=== PATIENT | male | born 1945 | race Caucasian/White ===

== ENCOUNTER 2022-07-01 07:12 | Inpatient (IN) ==
--- NOTE | 2022-06-09 09:48 | PAT Medication Instructions ---
Medication Instructions Date of Service June 09, 2022 Home Medications Vitamin C 1 tab PO QAM aspirin 81 mg capsule 81 mg PO Q OTHER DAY atorvastatin 10 mg tablet 10 mg PO QPM lisinopril 10 mg tablet 10 mg PO QAM ASK your prescriber and surgeon aspirin 81 mg capsule 81 mg PO Q OTHER DAY DO NOT take the morning of surgery Vitamin C 1 tab PO QAM lisinopril 10 mg tablet 10 mg PO QAM Take evening before surgery atorvastatin 10 mg tablet 10 mg PO QPM Other Notes If you have any questions please call us at [phone] or [phone] or [phone] or [phone]
--- NOTE | 2022-06-15 12:50 | Anesthesiology Consultation ---
Date of Service June 15, 2022 Assessment & Plan (1) Encounter for pre-operative examination: - COVID screening: Per assessment on 06/15: No known COVID-19 positive contacts or current COVID-19 related symptoms. Travel screen negative. Patient vaccinated. At surgeon discretion if preop Covid testing being done. - Outpatient joint assessment: Pt currently scheduled for inpatient pathway. If surgeon requests review for outpatient joint pathway, patient is an acceptable candidate for outpatient joint program from anesthesia standpoint pending surgeon's office assessment that patient is motivated, has good support and completes Same Day Joint Program preop requirements. Chart Review Chart Review: Acceptable Risk for Surgery and Patient seen in Pre Admission Testing Teaching & Discussion Pre-Anesthesia Teaching/Discussion Notes: Instructed NPO after midnight before surgery,except medications with 15 cc of water. Medication instructions provided according to the PAT guidelines. History Surgery Operation Date: 07/01/22 08:15 Proposed Procedures p Right Total Shoulder Arthroplasty Reverse - Rafael Chacon M.D. Height/Weight Height: 5 ft 5 in Weight: 75.6 kg Allergies Allergy/AdvReac Type Severity Reaction Status Date / Time No Known Allergies Allergy Verified 06/08/22 13:56 Medications Home Medications Medication Instructions Recorded Confirmed Last Taken Vitamin C 1 tab PO QAM 06/08/22 06/08/22 Unknown aspirin 81 mg capsule 81 mg PO Q OTHER DAY 06/08/22 06/08/22 Unknown atorvastatin 10 mg tablet 10 mg PO QPM 06/08/22 06/08/22 Unknown lisinopril 10 mg tablet 10 mg PO QAM 06/08/22 06/08/22 Unknown Past Medical History Medical History Borderline diabetes mellitus HLD (hyperlipidemia) HTN (hypertension) Osteoarthritis Exercise / Class Metabolic Activity II 4-5 Yardwork/Stairs/Walk up hill Past Family History Family History Other No family history of adverse response to anesthesia Past Surgical History Surgical History History of right inguinal hernia repair History of tonsillectomy Past Anesthesia History No Hx of Anesthesia Complications Sister- Slow to wake, PONV History of PONV No Hx of PONV and No Hx of Motion Sickness Social History Smoking Status: Never smoker Do You Dip or Chew Tobacco: No Hx Alcohol Use: No Hx Substance Use: No substance use type: does not use Review of Systems Patient denies chest pain, shortness of breath, dyspnea on exertion, fever, chills, cough, wheezing, palpitations. Physical Exam Vital Signs VITALS BP 133/80 P 94 TEMP 98.5 SP02 98%RA RESP 18 PHYSICAL Full cervical extension range of motion. Full TMJ range of motion. TMD 4 finger breaths Mallampati Score 1 Dentition: upper/lower full dentures Lungs: clear throughout to auscultation Cardiac: regular rate and rhythm, no murmurs noted Spine: normal Carotid arteries: negative bruit Extremities: no LE edema Lab Results Anesthesia Preop Results Results Anesthesia Widget: WBC 4.52 K/ul (4.8-10.8) L 06/15/22 Hgb 14.2 g/dl (14.0-18.0) 06/15/22 Hct 40.5 % (42.0-52.0) L 06/15/22 Plt 177 K/uL (130-400) 06/15/22 Na 142 mmol/L (136-145) 06/15/22 K 4.3 mmol/L (3.5-5.1) 06/15/22 Cl 105 mmol/L (98-107) 06/15/22 CO2 30 mmol/L (21-32) 06/15/22 BUN 28 mg/dl (6-23) H 06/15/22 Creat 0.68 mg/dl (0.6-1.4) 06/15/22 Glucose Level 164 mg/dl (70-99(Fasting)) H 06/15/22 PT 11.6 Seconds (9.0-12.0) 06/15/22 PTT 33.6 Seconds (21.0-31.0) H 06/15/22 INR 1.1 (0.9-1.1) 06/15/22 HA1c 6.5 % (4.5-5.6) H 06/15/22 Urine Color Yellow 06/15/22 Urine Appearance Clear (Clear) 06/15/22 Urine pH 6.5 (4.5-7.5) 06/15/22 Urine Specific [place] 1.024 (1.000-1.030) 06/15/22 Urine Protein Negative (Negative) 06/15/22 Urine Glucose (UA) Negative (Negative) 06/15/22 Urine Ketones Negative (Negative) 06/15/22 Urine Blood Negative (Negative) 06/15/22 Urine Nitrite Negative (Negative) 06/15/22 Urine Bilirubin Negative (Negative) 06/15/22 Urine Urobilinogen Negative (Negative) 06/15/22 Urine Leukocyte Esterase Negative (Negative) 06/15/22 Blood Type O Positive 06/15/22 Antibody Screen NEGATIVE 06/15/22 Testing Electrocardiogram Date: 06/15/22 NSR at 91bpm. Chest X-Ray Date: 06/15/22 FINDINGS: Lung volumes are normal. Lungs are clear. There is no pneumothorax or pleural effusion. Cardiac size is normal. There is tortuosity of the descending thoracic aorta. There is no evidence for pulmonary edema. IMPRESSION: No acute cardiopulmonary findings. COVID-19 Risk Screen Screening Information COVID-19 Screen Date: 06/15/22 Exposure 21 Days Family/Household +COVID Last 21 Days: No Exposure 10 Days Any COVID Exposure Last 10 Days: No Symptoms Last 10 Days Experienced COVID Sx Last 10 Days: No + COVID 0-90 Days COVID + in Last 0-90 Days: No
--- NOTE | 2022-06-30 16:00 | History & Physical Report ---
Date of Service June 30, 2022 Assessment & Plan (1) Right rotator cuff tear arthropathy: Plan: He very clearly has right shoulder rotator cuff tear arthropathy with severe glenohumeral joint arthritis. I again advised him that his only viable surgical treatment option for this is a reverse total shoulder arthroplasty. We discussed further conservative management with repeat injections versus definitive surgical intervention with a total shoulder arthroplasty. He would like to proceed with shoulder replacement surgery, and I think that is reasonable. Risks, benefits, and alternatives of surgery were explained in detail. The surgical procedure, as well as postoperative recovery and rehabilitation, was also explained in detail. Risks include bleeding; infection; damage to surrounding structures such as nerves, blood vessels, and tendons that run in the area; persistent pain or stiffness; hardware failure; dislocation; brachial plexus palsy; blood clots; or need for further surgery. The patient understands all of this and wishes to proceed with surgery. Risks will be reviewed on the day of surgery and informed consent obtained. History of Present Illness Chief Complaint: Right shoulder pain Primary Care Provider: NO PCP Mr. Walton returns. Again, he is a 76-year old [id number] male with right shoulder pain. He is a fairly poor historian, and gives multiple conflicting answers, but it sounds like this has been bothering him at least a few years with gradual progressive worsening. He cannot recall any specific injury. The pain has progressed to the point where it is waking him up at night. He was given a right shoulder steroid injection on October 21 without significant improvement in his pain. He was referred to me for further evaluation and treatment of this. I initially saw him for this in December 2021, diagnosed him with rotator cuff tear arthropathy, and gave him a subacromial steroid injection at that time. He reports that this injection did help him, but only lasted about 1 to 2 weeks. Allergies Allergy/AdvReac Type Severity Reaction Status Date / Time No Known Allergies Allergy Verified 06/08/22 13:56 Home Medications Medication Instructions Recorded Confirmed Type Vitamin C 1 tab PO QAM 06/08/22 06/08/22 History aspirin 81 mg capsule 81 mg PO Q OTHER DAY 06/08/22 06/08/22 History atorvastatin 10 mg tablet 10 mg PO QPM 06/08/22 06/08/22 History lisinopril 10 mg tablet 10 mg PO QAM 06/08/22 06/08/22 History Past Med/Surg History Medical History Borderline diabetes mellitus HLD (hyperlipidemia) HTN (hypertension) Osteoarthritis Surgical History History of right inguinal hernia repair History of tonsillectomy Family History Other No family history of adverse response to anesthesia Social History Smoking Status: Never smoker Second Hand Exposure: No; Do You Dip or Chew Tobacco: No; Hx Alcohol Use: No Hx Substance Use: No Preferred Language: Portuguese Communication Ability: Effective Carbonator Required: No Beliefs That Will Affect Care: None and Islam Islam Beliefs: Sabianism Current Living Situation: Family Feels Safe at Home: Yes Safety Concerns: Feels Safe At This Time Assistive Devices: Denture - Upper, Denture - Lower and Glasses Assistive Devices Comment: reading glasses Physical Exam Physical Exam: Examination of the right shoulder shows moderate limitation in shoulder range of motion due to pain, with palpable crepitus during motion. Rotator cuff strength is globally weak. Results & Data Diagnostic Findings Previous x-rays of the right shoulder from August 2020 were reviewed. They show evidence of glenohumeral joint arthritis and proximal migration of the humeral head, consistent with a chronic rotator cuff tear. MRI of the right shoulder from September 2021 was reviewed. It shows severe glenohumeral joint arthritis with complete loss of the articular surface with subchondral cyst formation and erosion of the central glenoid, consistent with a type C glenoid. There is evidence of a chronic, massive, retracted rotator cuff tear involving the supraspinatus, infraspinatus, and subscapularis tendons, with moderate fatty atrophy of all 3 muscle bellies. There is retraction of the rotator cuff tendon to the level of the glenoid rim, as well as proximal migration of the humeral head.
[~2022-07-01 07:12] MED LIST: ACETAMINOPHEN 500 MG TAB PO SCH; BUPIVACAINE 0.5 % 5 MG/1 ML PF 10ML VIAL ONE; CeleBREX 200 MG CAP PO SCH; FAMOTIDINE 20 MG TAB PO SCH; GABAPENTIN 600 MG DOSE PO SCH; LR 15ML/HR IV SCH; METOCLOPRAMIDE HCL 10 MG TABLET PO SCH; TRANEXAMIC ACID 1,000 MG **IV Pre-op IV SCH; ceFAZolin 2000MG 2,000 MG/15 ML SYR IV SCH; dexAMETHasone 4 MG TAB PO SCH
[2022-07-01] MEDS ORDERED: MIDAZOLAM HCL 1 MG/ML 2ML VIAL ONE (08:51)
[2022-07-01] MEDS ORDERED: HYDROmorphone INJ 1 MG/ML SYRINGE IV PRN (09:15)
[2022-07-01] MEDS ORDERED: fentaNYL citrate PF 100 MCG/2 ML VIAL IV PRN (09:15)
[2022-07-01] MEDS ORDERED: ePHEDrine sulfate 50 MG/ML AMP IV PRN (09:15)
[2022-07-01] MEDS ORDERED: ATROPINE SULFATE 0.1 MG/ML 10ML SYR IV PRN (09:15)
[2022-07-01] MEDS ORDERED: ONDANSETRON INJ 2 MG/ML 2 ML VIAL IV PRN ×2 (09:15→13:50)
--- NOTE | 2022-07-01 09:33 | History & Physical Bridge Note ---
Date of Service July 01, 2022 History & Physical Bridge Note I have examined the patient, reviewed the History & Physical and in the interval since the performance of the History & Physical I have noted the following changes of clinical significance: no changes noted
[2022-07-01] MEDS ORDERED: ROCURONIUM BROMIDE 10 MG/ML 5 ML VIAL IV ONE (10:12)
[2022-07-01] MEDS ORDERED: ONDANSETRON INJ 2 MG/ML 2 ML VIAL ONE (10:12)
[2022-07-01] MEDS ORDERED: fentaNYL citrate PF 100 MCG/2 ML VIAL ONE (10:12)
[2022-07-01] MEDS ORDERED: PROPOFOL IV EMULSION 10 MG/ML 20 ML VIAL IV ONE (10:12)
[2022-07-01] MEDS ORDERED: NEOSTIGMINE METHYLSULFATE 1 MG/ML 10ML VIAL ONE (11:52)
[2022-07-01] MEDS ORDERED: GLYCOPYRROLATE 0.2 MG/ML VIAL ONE (11:52)
--- NOTE | 2022-07-01 12:06 | Operative Report ---
Post Operative Report Pre & Post Diagnosis Operation Date: 07/01/22 09:55 Pre-Op Diagnosis: Right shoulder rotator cuff tear arthropathy Post-Op Diagnosis: Right shoulder rotator cuff tear arthropathy I identified the patient and participated in the time-out.: Yes Procedure Operation Date: 07/01/22 09:55 Actual Procedures Right reverse total shoulder arthroplasty (27683) Open biceps tenodesis (03029) - Rafael Chacon M.D. Surgeon Rafael Chacon MD Collateral Clerk Johnny Rosado PA-C Estimated Blood Loss 75 Findings Consistent with Post-Op Diagnosis Specimens None Drains None Anesthesia Type General Regional Complications none Disposition Disposition: Recovery Room Indications Mr. Walton is a 76-year-old male with right shoulder pain and weakness. History, clinical exam, and imaging were consistent with the above diagnosis. Risks, benefits, and alternatives of surgery were explained in detail. The patient understood all this and wished to proceed. Description of Procedure Components Implanted: Tornier Reverse Total Shoulder implants Perform glenoid baseplate: 29mm, 15 degree full wedge with 6.5mm central screw and 5.0mm peripheral screws Glenosphere: 39mm standard Ascend Flex humeral stem: 3B Standard length (74mm) Humeral tray: 1.5 mm offset, +0mm thickness Polyethylene insert: 39mm, +6mm thickness Patient was identified in the preoperative holding area. Operative extremity was marked. Regional blockade was given by the Anesthesia Staff. Patient was then brought back to the operating room, and general anesthesia was induced without complication. Appropriate weight-based dose of Ancef was infused intravenously for antibiotic prophylaxis. The patient was then placed in the beachchair position. Right arm was then prepped and draped in a standard sterile fashion using Chlorhexidine prep. A standard deltopectoral incision was made through the skin and subcutaneous tissue. The cephalic vein was identified and retracted medially. Small branches to the deltoid were coagulated as necessary. The clavipectoral fascia was then incised and the subdeltoid space was opened. The rotator cuff was found to be deficient, and I therefore decided to perform a reverse total shoulder arthroplasty as planned preoperatively. The biceps tendon was identified within the bicipital groove and tenodesed at the superior border of the pectoralis tendon with #2 FiberWire suture. The biceps tendon was then divided proximal to the tenodesis site and the rotator interval was opened. The proximal portion of the biceps tendon was excised. The remaining subscapularis tendon was elevated subperiosteally off of the lesser tuberosity. The glenohumeral joint was then dislocated, and large osteophytes were debrided with a ronguer. The intramedullary canal of the humerus was then opened with a canal finder. The humeral head cut was then made in the appropriate inclination and version using the cutting guide. The humeral canal was then sequentially broached to the appropriate size. A protective cap was then placed on top of the humeral trial. I then turned my attention to the glenoid. The proximal stump of the biceps tendon was excised, along with the labrum circumferentially around the glenoid. The Blueprint drill guide was then positioned on the glenoid, and the guidepin was then inserted. The 15 degree angled reamer was then inserted over the guidepin and an reamed to an appropriate depth. The central screw hole was drilled, and appropriate length 6.5mm central screw was selected. The baseplate was then implanted into place according to our preoperative Blueprint plan by tightening down the central screw. A peripheral 5mm nonlocking screw was placed postero-superiorly first for additional compression of the baseplate, and then additional locking 5 mm peripheral screws were placed to complete fixation of the baseplate. Glenosphere was then impacted and secured. A trial humeral tray and insert were placed on the trial humeral stem, and a trial reduction was carried out. Once I achieved acceptable joint stability and range of motion with the trial implants, the final humeral implants were assembled on the back table and then impacted into position. I then took the shoulder through full range of motion to ensure good stability and acceptable motion. Wound was then copiously irrigated with sterile saline. Deep fascia was closed with 0 V-lock suture. Subcutaneous tissue was closed with 2-0 V-lock, and skin was closed with 3-0 V-lock. Skin was then sealed with Dermabond. Sterile dressings were then applied with a waterproof silver-impregnated dressing, and the arm was placed into a sling. The patient was awakened from anesthesia and taken to the Post Anesthesia Care Unit in stable condition. There were no immediate complications from the procedure. I was present and scrubbed for the entire procedure, with the exception of final skin closure and dressing application. Due to the complex nature of the procedure, the entire surgery was performed with the operational assistance of Johnny Rosado PA-C. The community relations assistant, under direct supervision, was involved in the performance of all aspects of the surgical procedure including hemostasis, tissue incision and retraction, instrument management, patient positioning, and wound closure. I attest to the content of the Intraoperative Record and any orders documented therein. Any exceptions are noted below.
[2022-07-01] MEDS ORDERED: bisacodyL 10 MG SUPP PR PRN (13:50)
[2022-07-01] MEDS ORDERED: NALOXONE HCL 0.4 MG/1 ML VIAL/CARP IV PRN (13:50)
[2022-07-01] MEDS ORDERED: oxyCODONE HCL IR 5 MG TAB (IMMEDIATE RELEASE) PO PRN (13:50)
[2022-07-01] MEDS ORDERED: MAGNESIUM HYDROXIDE SUSP 30 ML UDC PO PRN (13:50)
[2022-07-01] MEDS ORDERED: METOCLOPRAMIDE HCL INJ 5 MG/ML 2 ML VIAL IV PRN (13:50)
[2022-07-01] MEDS: SODIUM CHLORIDE 0.9% 1000ML 1,000 ML IV SCH (13:58)
--- NOTE | 2022-07-01 14:20 | XRay Report ---
XR shoulder RT min 2V routine CLINICAL HISTORY: Post shoulder surgery COMPARISON STUDY: None. FINDINGS: Status post reverse right total shoulder arthroplasty. The hardware appears intact. No frac ture or dislocation within the right shoulder. Right basilar densities favor subsegmental atelectasis . IMPRESSION: Status post reverse right total shoulder arthroplasty. No evidence for hardware complica tion. ACT 112: Negative or not required by law. Electronically signed by: Josef Saldivar M.D. 07/01/2022 2:19 PM
--- NOTE | 2022-07-01 16:06 | Anesthesiology Progress Note ---
Date of Service July 01, 2022 Anesthesia Post Procedure Vital Signs Vital Signs: Temp Pulse Pulse Resp BP Pulse Ox O2 Del Method 07/01/22 15:36 110 H 16 122/85 97 Nasal Cannula 07/01/22 14:44 36.6 C 107 H 17 123/84 95 Nasal Cannula 07/01/22 13:50 36.4 C L 102 H 18 125/85 95 Nasal Cannula 07/01/22 13:20 36.4 C L 99 H 19 121/76 93 Nasal Cannula 07/01/22 13:10 97 H 19 114/78 93 Nasal Cannula 07/01/22 13:00 99 H 18 113/78 93 Nasal Cannula 07/01/22 12:50 102 H 20 120/78 94 Nasal Cannula 07/01/22 12:40 100 H 18 120/76 94 Oxymask 07/01/22 12:30 103 H 20 111/76 95 Oxymask 07/01/22 12:20 108 H 20 114/76 95 Oxymask 07/01/22 12:19 36.3 C L 106 H 18 116/71 95 Oxymask 07/01/22 08:15 36.7 C 82 20 155/92 H 94 Room Air O2 Flow Rate 07/01/22 15:36 1 07/01/22 14:44 2 07/01/22 13:50 2 07/01/22 13:20 2 07/01/22 13:10 2 07/01/22 13:00 2 07/01/22 12:50 2 07/01/22 12:40 3 07/01/22 12:30 6 07/01/22 12:20 6 07/01/22 12:19 6 07/01/22 08:15 Transfer of Care Handoff Completed per policy Notes Mental Status: alert / awake / arousable and participated in evaluation Patient Amnestic to Procedure: Yes Nausea / Vomiting: adequately controlled Pain: adequately controlled Airway Patency, RR, SpO2: stable & adequate BP & HR: stable & adequate Hydration State: stable & adequate Anesthetic Complications: no major complications apparent and Pt Satisfied with anesthetic care
[2022-07-01] MEDS: ACETAMINOPHEN 500 MG TAB PO SCH (17:58)
[2022-07-01] MEDS: ceFAZolin 1000MG 1,000 MG/7.5 ML SYR IV SCH (17:58)
[2022-07-01] MEDS: ATORVASTATIN 10 MG TAB PO SCH (21:18)
[2022-07-01] MEDS: DOCUSATE SODIUM 100 MG CAP PO SCH (21:18)
[2022-07-01] MEDS: IBUPROFEN 600 MG TAB PO SCH (21:19)
[2022-07-01] MEDS: SENNA 8.6 MG TAB PO SCH (21:19)
[2022-07-02] MEDS: SODIUM CHLORIDE 0.9% 1000ML 1,000 ML IV SCH (00:09)
[2022-07-02] MEDS: ACETAMINOPHEN 500 MG TAB PO SCH ×5 (00:11→23:53)
[2022-07-02] MEDS: ceFAZolin 1000MG 1,000 MG/7.5 ML SYR IV SCH (02:11)
[2022-07-02] MEDS: IBUPROFEN 600 MG TAB PO SCH ×4 (03:41→19:57)
[2022-07-02 06:56] LABS: Basophils # (auto) 0.01 K/uL (0-0.2); Basophils % (auto) 0.1 %; Hematocrit (blood only) 35.2 % (42.0-52.0); Hemoglobin 12.5 g/dl (14.0-18.0); Immature Granulocytes # (auto) 0.03 K/uL (0.01-0.20); Immature Granulocytes % (auto) 0.3 %; Lymphocytes # (auto) 0.92 K/uL (1.2-3.4); Lymphocytes % (auto) 8.8 %; Mean Corpuscular Hemoglobin 29.6 pg (25.0-34.0); Mean Corpuscular Hgb Conc 35.5 g/dL (32.0-36.0); Mean Corpuscular Volume 83.4 fL (80.0-100.0); Mean Platelet Volume 10.3 fL (9.4-12.4); Monocytes # (auto) 1.15 K/uL (0.11-0.59); Neutrophils # (auto) 8.32 K/uL (1.40-6.50); Neutrophils % (auto) 79.8 %; Platelet Count 186 K/uL (130-400); RDW Standard Deviation 39.2 fL (36.4-46.3); Red Blood Count 4.22 M/uL (4.70-6.10); White Blood Count 10.43 K/ul (4.8-10.8)
[2022-07-02 07:20] LABS: BUN Creatinine Ratio 29.9 (10-20); Calcium 8.4 mg/dl (8.6-10.3); Creatinine Clr Calc Pharmacy 78.3 ml/min; Est GFR (African American) 102.9 ml/min; Est GFR (Non-African American) 88.8 ml/min; Potassium 4.7 mmol/L (3.5-5.1)
[2022-07-02] MEDS: MULTIVITAMIN TAB PO SCH (07:31)
[2022-07-02] MEDS: DOCUSATE SODIUM 100 MG CAP PO SCH ×2 (07:31→19:57)
--- NOTE | 2022-07-02 08:11 | Orthopedic Progress Note ---
Date of Service July 02, 2022 Assessment & Plan (1) Right rotator cuff tear arthropathy: Plan: 76 yo male stable POD #1 s/p right reverse TSA 1. Med management 2. DVT prophylaxis- ASA, SCDs 3. PT/OT 4. D/C planning- home w/ home PT vs OPPT Admission and Anticipated Discharge Date Admission Date: July 01, 2022 Subjective Pt resting in chair, being seen by OT, denies complaints, pain controlled Physical Exam Physical Exam: Silverlon dressing in place, fingers mobile, NVI Results & Data Vital Signs (Past 12 Hours) Vital Signs Temp Pulse Resp BP Pulse Ox O2 Del Method O2 Flow Rate 07/02/22 07:30 Room Air 07/02/22 06:19 36.8 C 107 H 18 108/73 95 Nasal Cannula 2 07/02/22 02:24 37 C 107 H 18 103/70 93 Nasal Cannula 2 07/02/22 03:43 105 H 110/71 95 Nasal Cannula 3 07/02/22 00:05 107 H 18 94 Nasal Cannula 2 07/01/22 22:38 114 H 07/01/22 21:47 36.9 C 119 H 18 125/79 95 Nasal Cannula 2 Laboratory Results 07/02/22 07/02/22 07/01/22 Range/Units 06:23 06:23 Unknown WBC 10.43 (4.8-10.8) K/ul RBC 4.22 L (4.70-6.10) M/uL Hgb 12.5 L (14.0-18.0) g/dl Hct 35.2 L (42.0-52.0) % MCV 83.4 (80.0-100.0) fL MCH 29.6 (25.0-34.0) pg MCHC 35.5 (32.0-36.0) g/dL RDW Std Deviation 39.2 (36.4-46.3) fL RDW Coeff of Hilario 13.0 (11.5-14.5) % Plt Count 186 (130-400) K/uL MPV 10.3 (9.4-12.4) fL Immature Gran % (Auto) 0.3 % Neut % (Auto) 79.8 % Lymph % (Auto) 8.8 % Sharp % (Auto) 11.0 % Eos % (Auto) 0.0 % Baso % (Auto) 0.1 % Neut # (Auto) 8.32 H (1.40-6.50) K/uL Lymph # (Auto) 0.92 L (1.2-3.4) K/uL Sharp # (Auto) 1.15 H (0.11-0.59) K/uL Eos # (Auto) 0.00 (0-0.50) K/uL Baso # (Auto) 0.01 (0-0.2) K/uL Immature Gran # (Auto) 0.03 (0.01-0.20) K/uL Sodium 138 (136-145) mmol/L Potassium 4.7 (3.5-5.1) mmol/L Chloride 105 (98-107) mmol/L Carbon Dioxide 26 (21-32) mmol/L Anion Gap 7 (3-11) BUN 23 (6-23) mg/dl Creatinine 0.77 (0.6-1.4) mg/dl Est Cr Clr Drug Dosing 78.3 ml/min Est GFR ( Amer) 102.9 ml/min Est GFR (Non-Af Amer) 88.8 ml/min BUN/Creatinine Ratio 29.9 H (10-20) Glucose 159 H (70-99(Fasting)) mg/dl Calcium 8.4 L (8.6-10.3) mg/dl SARS-CoV-2, RNA, NAAT NEGATIVE (NEGATIVE)
[2022-07-02] MEDS: ASPIRIN 325 MG ECTAB PO SCH (08:59)
[2022-07-02] MEDS: ASCORBIC ACID 500 MG TAB PO SCH (08:59)
[2022-07-02] MEDS ORDERED: lisinopril 10 MG TAB PO SCH (09:00)
--- NOTE | 2022-07-02 09:06 | Hospitalist Consultation ---
Date of Consultation July 02, 2022 Assessment & Plan (1) Right rotator cuff tear arthropathy: POD #1 s/p Right reverse total shoulder arthroplasty (38846) Open biceps tenodesis (70369) with Dr Rafael Chacon on 07/01. EBL 75cc Pain control/bowel regimen/PT/OT per primary service Using full dose aspirin for DVT prophylaxis Dispo per primary service -- possible need for rehab per therapy but defer dispo to primary (2) HTN (hypertension): on lisinopril 10mg daily -- was already given for BP 108/73 this morning would rec to hold lisinopril for tomorrow/monitor BPs --> Orthos not terrible, but will give 250cc NSS for now, encouraged patient to push oral fluids Consider holding lisinopril for tomorrow/monitoring BPs at home and can resume lisinopril if BPs ok on Tuesday (3) HLD (hyperlipidemia): continue atorvastatin (4) Borderline diabetes mellitus: not on any medications glucose on AM labs 159, acceptable outpatient follow up with PCP Plan Thank you for allowing hospitalist service to participate in the care of Mr Walton. Hospitalist service will sign off at this time. Please call with any questions/concerns. Supervising Physician Co-Signing Physician Notes The patient was seen by me. The chart was reviewed. Case discussed with HAL Huynh. Agree with assessment and plan. Primary service will be discharging the patient home today, July 02 History of Present Illness Reason for Consultation: med management Requesting Physician: Dr Chacon Attending Physician: Rafael Chacon History of Present Illness 76yo male with PMHx significant for HTN, HLD, borderline DM presented for RIGHT total shoulder with Dr Chacon. Eval POD#1, doing well. Worked with therapy and did steps, uses a cane at home for chronic issues and therapy possibly recommending rehab. His BP is borderline,but not symptomatic, no lightheaded/dizziness. Does look a little dehydrated on exam, encouraged to push oral fluids. RN checking orthos to be safe but do not feel needs to hold up discharge. He states pain is controlled. No BM, but no abdominal pain. Discussed continuing a bowel regimen while on pain medications. No fever/chills, chest pain, shortness of breath. Questions/concerns addressed at this time. Allergies Allergy/AdvReac Type Severity Reaction Status Date / Time No Known Allergies Allergy Verified 07/01/22 07:50 Home Medications Medication Instructions Recorded Confirmed Type Vitamin C 1 tab PO QAM 06/08/22 07/01/22 History aspirin 81 mg capsule 81 mg PO Q OTHER DAY 06/08/22 07/01/22 History atorvastatin 10 mg tablet 10 mg PO QPM 06/08/22 07/01/22 History lisinopril 10 mg tablet 10 mg PO QAM 06/08/22 07/01/22 History Patient History Medical History Borderline diabetes mellitus HLD (hyperlipidemia) HTN (hypertension) Osteoarthritis Surgical History History of right inguinal hernia repair History of tonsillectomy Family History Other No family history of adverse response to anesthesia Social History Smoking Status: Never smoker Second Hand Exposure: No; Do You Dip or Chew Tobacco: No; Hx Alcohol Use: No Hx Substance Use: No Preferred Language: Chinese Communication Ability: Effective Financial Sales Professional Required: No Beliefs That Will Affect Care: None and Sabianism Sabianism Beliefs: Mosque Current Living Situation: Family Feels Safe at Home: Yes Safety Concerns: Feels Safe At This Time Assistive Devices: Cane Assistive Devices Comment: reading glasses Physical Exam Physical Exam: General: WD/WN male sitting in bed, NAD HEENT: head normocephalic, pupils equal, mm slightly dry, trachea midline Resp: CTA, no w/c on room air CV: Regular rhythm, rates 90s, no significant m/r/g, no pitting edema GI:+BS, slight distension but NT to palpation : no bermudez MSK/Neuro: sling to RUE, dressing in place (tender to palpation along surgical site, no signs infection), fingers mobile, decreased sensation to light touch to thumb but ROM intact and distribution analyst strength intact Psych: AOx3, pleasant and cooperative Results & Data Results & Data Vital Signs (Past 12 Hours) Vital Signs Temp Pulse Resp BP Pulse Ox O2 Del Method O2 Flow Rate 07/02/22 07:30 Room Air 07/02/22 06:19 36.8 C 107 H 18 108/73 95 Nasal Cannula 2 07/02/22 02:24 37 C 107 H 18 103/70 93 Nasal Cannula 2 07/02/22 03:43 105 H 110/71 95 Nasal Cannula 3 07/02/22 00:05 107 H 18 94 Nasal Cannula 2 07/01/22 22:38 114 H 07/01/22 21:47 36.9 C 119 H 18 125/79 95 Nasal Cannula 2 Laboratory Results 07/02/22 07/02/22 Range/Units 06:23 06:23 WBC 10.43 (4.8-10.8) K/ul RBC 4.22 L (4.70-6.10) M/uL Hgb 12.5 L (14.0-18.0) g/dl Hct 35.2 L (42.0-52.0) % MCV 83.4 (80.0-100.0) fL MCH 29.6 (25.0-34.0) pg MCHC 35.5 (32.0-36.0) g/dL RDW Std Deviation 39.2 (36.4-46.3) fL RDW Coeff of Hilario 13.0 (11.5-14.5) % Plt Count 186 (130-400) K/uL MPV 10.3 (9.4-12.4) fL Immature Gran % (Auto) 0.3 % Neut % (Auto) 79.8 % Lymph % (Auto) 8.8 % [place] % (Auto) 11.0 % Eos % (Auto) 0.0 % Baso % (Auto) 0.1 % Neut # (Auto) 8.32 H (1.40-6.50) K/uL Lymph # (Auto) 0.92 L (1.2-3.4) K/uL [place] # (Auto) 1.15 H (0.11-0.59) K/uL Eos # (Auto) 0.00 (0-0.50) K/uL Baso # (Auto) 0.01 (0-0.2) K/uL Immature Gran # (Auto) 0.03 (0.01-0.20) K/uL Sodium 138 (136-145) mmol/L Potassium 4.7 (3.5-5.1) mmol/L Chloride 105 (98-107) mmol/L Carbon Dioxide 26 (21-32) mmol/L Anion Gap 7 (3-11) BUN 23 (6-23) mg/dl Creatinine 0.77 (0.6-1.4) mg/dl Est Cr Clr Drug Dosing 78.3 ml/min Est GFR ( Amer) 102.9 ml/min Est GFR (Non-Af Amer) 88.8 ml/min BUN/Creatinine Ratio 29.9 H (10-20) Glucose 159 H (70-99(Fasting)) mg/dl Calcium 8.4 L (8.6-10.3) mg/dl Diagnostic Findings Shoulder X-Ray 07/01/22 12:20 XR shoulder RT min 2V routine CLINICAL HISTORY: Post shoulder surgery COMPARISON STUDY: None. FINDINGS: Status post reverse right total shoulder arthroplasty. The hardware appears intact. No fracture or dislocation within the right shoulder. Right basilar densities favor subsegmental atelectasis. IMPRESSION: Status post reverse right total shoulder arthroplasty. No evidence for hardware complication. ACT 112: Negative or not required by law. Electronically signed by: Josef Saldivar M.D. 07/01/2022 2:19 PM PG Care Time/CCT Total # of Minutes Spent Total Time Spent with Patient: Total time spent is greater than 50% in coordination of care (as documented) at patient's floor/unit and/or counseling patient: Coding Level of Care Code 06952 IN/OBS CONSULT LVL 3,45M Diagnoses Right rotator cuff tear arthropathy M75.101; M12.811 HTN (hypertension) I10 HLD (hyperlipidemia) E78.5 Borderline diabetes mellitus R73.03
[2022-07-02] MEDS ORDERED: SODIUM CHLORIDE 0.9% 1000ML 250 ML IV ONE (09:43)
[2022-07-02 19:02] LABS: Appearance Urine Clear (Clear); Bacteria Urine Automated Negative (Negative); Bilirubin Urine Negative (Negative); Blood Urine 1+ (Negative); Cast Urine Automated 0 /lpf (0-5); Color Urine Yellow; Epithelial Cell Urine Auto 0-5 /lpf (0-5); Glucose Urine UA Negative (Negative); Ketones Urine Negative (Negative); Leukocyte Esterase Urine Negative (Negative); Nitrite Urine Negative (Negative); Protein Urine Negative (Negative); Specific Gravity Urine 1.012 (1.000-1.030); Urobilinogen Urine Negative (Negative); pH Urine 5.5 (4.5-7.5)
[2022-07-02] MEDS: ATORVASTATIN 10 MG TAB PO SCH (19:57)
[2022-07-02] MEDS: SENNA 8.6 MG TAB PO SCH (19:58)
[2022-07-03] MEDS: IBUPROFEN 600 MG TAB PO SCH ×3 (03:22→14:41)
[2022-07-03] MEDS: ACETAMINOPHEN 500 MG TAB PO SCH ×2 (05:23→11:47)
[2022-07-03] MEDS: MULTIVITAMIN TAB PO SCH (08:23)
[2022-07-03] MEDS: DOCUSATE SODIUM 100 MG CAP PO SCH (08:23)
[2022-07-03] MEDS: ASPIRIN 325 MG ECTAB PO SCH (08:23)
[2022-07-03] MEDS: ASCORBIC ACID 500 MG TAB PO SCH (08:23)
--- NOTE | 2022-07-03 10:19 | Hospitalist Progress Note ---
Date of Service July 03, 2022 Assessment & Plan (1) Right rotator cuff tear arthropathy: Plan: POD #2 s/p Right reverse total shoulder arthroplasty (65867) Open biceps tenodesis (79629) with Dr Rafael Chacon on 07/01. EBL 75cc Pain control/bowel regimen/PT/OT per primary service Using full dose aspirin for DVT prophylaxis Urinary retention last evening, bladder scan >800cc. Had st cath x 2 Ordered for bermudez placement as urology had not responded to nursing and patient was 8hrs since last void. UOP currently acceptable. Does have hx BPH per PCP notes, not on medication. UA obtained w/o evidence for infection Could consider flomax but will defer to urology. Possible voiding trial prior to dc vs dc w/ bermudez and outpatient voiding trial -- again, defer to urology in consult Dispo per primary service (2) Urinary retention: Plan: post-op, st cath x 2., hx bph but not on medications now w/ bermudez. UA negative for infection, noting blood (likely from st cath x 2 prior) urology on consult for recs/management, consideration voiding trial inpatient vs outpatient -- defer to urology (3) HTN (hypertension): Plan: on lisinopril 10mg daily -- was already given for BP 108/73 AM 07/02, placed on hold Kidney function stable. Given 250cc NSS given slightly positive orthostatics. No lightheaded/dizziness reported Lisinopril held for this morning but can resume for tomorrow BP stable 108/75, asymptomatic (4) HLD (hyperlipidemia): Plan: continue atorvastatin (5) Borderline diabetes mellitus: Plan: not on any medications glucose on AM labs 159, acceptable outpatient follow up with PCP Plan Thank you for allowing hospitalist service to participate in the care of Mr Walton. Hospitalist service will sign off at this time. Please call with any questions/concerns. Admission and Anticipated Discharge Date Admission Date: July 01, 2022 Supervising Physician Co-Signing Physician Notes The patient was not seen by me. The chart was reviewed. Case discussed with HAL Huynh. Agree with assessment and plan Subjective eval this morning, working with therapy. moved his bowels a little this morning bermudez placed last night and draining yellow urine no further discomfort to abdomen since placing has not yet seen orthopedics or urology services discussed they may want to send him home with bermudez and consider voiding trial outpatient but will await their eval. HR 90-100 at present. Pain controlled reported and only using tylenol/ibuprofen. No chest pain/shortness of breath/abdominal pain, lightheadedness, dizziness, palpitations or other at this time. he is planning HH therapy/outpatient rather than inpatient at this time but TBD based on dispo per primary service/consult w/ urology questions/concerns addressed. Physical Exam Physical Exam: General: WD/WN male sitting up in bed, working with therapy, NAD HEENT: head normocephalic, pupils equal, mmm, trachea midline Resp: CTA, no w/c on room air CV: Regular rhythm, rates 90-100s, no significant m/r/g, no pitting edema GI:+BS, less distended, soft, NT : bermudez in place, slightly concentrated urine in bag but clear in tubing MSK/Neuro: sling to RUE, dressing in place (tender to palpation along surgical site, no signs infection), fingers mobile, improvement in sensation to light touch to thumb, ROM intact/land appraiser strength equal bilaterally Psych: AOx3, pleasant and cooperative, intellectual disability Results & Data Results & Data Vital Signs (Past 12 Hours) Vital Signs Temp Pulse Pulse Resp BP Pulse Ox O2 Del Method 07/03/22 08:30 Room Air 07/03/22 07:43 36.7 C 101 H 18 108/75 95 Room Air 07/02/22 23:54 36.7 C 98 H 16 110/76 94 Room Air Laboratory Results 07/02/22 Range/Units 18:42 Urine Color Yellow Urine Appearance Clear (Clear) Urine pH 5.5 (4.5-7.5) Ur Specific [place] 1.012 (1.000-1.030) Urine Protein Negative (Negative) Urine Glucose (UA) Negative (Negative) Urine Ketones Negative (Negative) Urine Blood 1+ H (Negative) Urine Nitrite Negative (Negative) Urine Bilirubin Negative (Negative) Urine Urobilinogen Negative (Negative) Ur Leukocyte Esterase Negative (Negative) Urine WBC (Auto) 1-5 (0-5) /hpf Urine RBC (Auto) 5-10 H (0-4) /hpf U Hyaline Cast (Auto) 0 (0-5) /lpf U Epithel Cells (Auto) 0-5 (0-5) /lpf Urine Bacteria (Auto) Negative (Negative) PG Care Time/CCT Total # of Minutes Spent Total Time Spent with Patient: Total time spent is greater than 50% in coordination of care (as documented) at patient's floor/unit and/or counseling patient: Coding Level of Care Code 93826 SUB INP/OBS CARE 2/35MIN Diagnoses Right rotator cuff tear arthropathy M75.101; M12.811 Urinary retention R33.9 HTN (hypertension) I10 HLD (hyperlipidemia) E78.5 Borderline diabetes mellitus R73.03
--- NOTE | 2022-07-03 11:06 | Orthopedic Progress Note ---
Date of Service July 03, 2022 Assessment & Plan (1) Right rotator cuff tear arthropathy: Plan: 76 yo male stable POD #2 s/p right reverse TSA 1. Med management 2. DVT prophylaxis- ASA, SCDs 3. PT/OT 4. Urology consult 5. D/C planning- home today w/ home PT pending urology recs Admission and Anticipated Discharge Date Admission Date: July 01, 2022 Subjective Patient seen and examined, no acute events overnight. Pain well controlled. Bazzi catheter remains in place. Physical Exam Constitutional: NAD, AAOx3 Musculoskeletal: RUE - in sling - dressing c/d/i - silt a/m/r/u - fires wf/we/epl/fpl/madhav + rad pulse Results & Data Vital Signs (Past 12 Hours) Vital Signs Temp Pulse Pulse Resp BP Pulse Ox O2 Del Method 07/03/22 08:30 Room Air 07/03/22 07:43 36.7 C 101 H 18 108/75 95 Room Air 07/02/22 23:54 36.7 C 98 H 16 110/76 94 Room Air
--- NOTE | 2022-07-03 13:12 | Urology Consultation ---
Date of Consultation July 03, 2022 Assessment & Plan (1) Urinary retention: (2) Right rotator cuff tear arthropathy: (3) Borderline diabetes mellitus: Plan New consult for patient with inability to void after her shoulder surgery. Had undergone a right treatment with the orthopedic team. Subsequently we had trouble voiding. Had to be straight cathed 3 times for larger volumes. After the third catheterization patient elected to move forward with Bazzi catheter placement. Currently has an indwelling Bazzi in place draining clear yellow urine. Has not had any major bleeding. No major history of infection or other issues. Per patient over the last few years he has had increasing lower urinary tract symptoms. Has significant frequency. Has incomplete emptying with need to void frequently in order to empty. Has not had major episodes of retention in the past. No previous bleeding. Patient's complicated medical and surgical history is reviewed and summarized above. All vitals were reviewed. Current pulse is 101. Blood pressure is 108/75. Is afebrile. Patient has not been on any medication for his prostate in the past. Currently his creatinine is 0.77. White count is 10.43. All other labs were reviewed. Patient has no current imaging of the system. UA that was completed yesterday after the catheterization had a small amount of blood likely secondary to the intermittent catheterization. Reviewed with patient urinary retention postoperatively. Discussed factors contributing including anesthetic, deconditioning, returning bowel function, and other issues. Patient appears to have likely baseline issues with urinary issues. Has never been on medication but would likely benefit from a trial of tamsulosin. Patient is interested in proceeding. Discussed options for management of catheter. At this point we will plan to maintain catheter. We will have patient likely follow-up in the office in the next 3 to 5 days to have catheter removed. We will try to coordinate this through our office. Would likely benefit from trial of void at that time. Would recommend initiating therapy with tamsulosin. Would also likely assist with the catheter discomfort he may be experiencing over the next few days. No major spasms issues or burning. Overall has been tolerating catheter without major issue. Reviewed options for follow-up afterwards. We will likely need work-up for lower urinary tract symptoms and likely bladder outlet obstruction with episode of postoperative retention. Discussed focusing on ways to manage issues as well as ways to prevent future issues of retention with any other illnesses surgeries or other issues. Patient is interested in proceeding. We will plan to set up the outpatient follow-up. His complicated medical and surgical history is reviewed and summarized above. All imaging and labs reviewed. Reports as above. Follow-up for catheter removal in the next few days with plans for follow-up in the office after a few weeks to work-up lower urinary tract issues. We will send a prescription for tamsulosin for the patient to initiate in the meantime. History of Present Illness Attending Physician: Rafael Chacon History of Present Illness Consult for urinary issues with incomplete emptying and possible retention. Patient has mild to moderate discomfort in pelvis and groin going to back and side in waves. Is dealing with acute recovery after shoulder surgery on the right shoulder. Has been deconditioned from this. Has decreased mobility significantly with acute issues. Patient has not had complete return to normal bowel function. Has had some minor urinary issues in the past. Denies bleeding. No severe nausea or vomiting. Currently no fevers. Discussed with patient multifactorial nature of urinary issues, retention, and incomplete bladder emptying. Discussed concerns and issues. Discussed decreased mobility and trouble voiding. Discussed issues related to deconditioning and weakened state. Discussed possibility that patient had more moderate to severe issues and with the acute illness and deconditioning these issues became more prevalent and obvious. Discussed bowel function and possible issues related to decrease in function and its relation to other pelvic organs and systems. Discussed different medications, will use during hospitalization and their effect on ability to empty. Allergies Allergy/AdvReac Type Severity Reaction Status Date / Time No Known Allergies Allergy Verified 07/01/22 07:50 Home Medications Medication Instructions Recorded Confirmed Type Vitamin C 1 tab PO QAM 06/08/22 07/01/22 History aspirin 81 mg capsule 81 mg PO Q OTHER DAY 06/08/22 07/01/22 History atorvastatin 10 mg tablet 10 mg PO QPM 06/08/22 07/01/22 History lisinopril 10 mg tablet 10 mg PO QAM 06/08/22 07/01/22 History Patient History Medical History Borderline diabetes mellitus HLD (hyperlipidemia) HTN (hypertension) Osteoarthritis Surgical History History of right inguinal hernia repair History of tonsillectomy Family History Other No family history of adverse response to anesthesia Social History Smoking Status: Never smoker Second Hand Exposure: No; Do You Dip or Chew Tobacco: No; Hx Alcohol Use: No Hx Substance Use: No Preferred Language: Israeli Communication Ability: Effective Family Member Caretaker Required: No Beliefs That Will Affect Care: None and Roman Catholic Roman Catholic Beliefs: Protestant Current Living Situation: Family Feels Safe at Home: Yes Safety Concerns: Feels Safe At This Time Assistive Devices: Cane Assistive Devices Comment: reading glasses Review of Systems Review of Systems: All systems reviewed & are unremarkable except as noted in HPI & below Physical Exam Physical Exam: General: Alert and oriented x 3 in no acute distress. Patient is well nourished and well kept. HEENT: Normocephalic Atraumatic. Inspection normal. Cranial Nerves 2-12 Grossly intact. Nares are clear. Neck is supple. Normal inspection of face. Normal inspection of neck. Neurologic: No deficits on inspection. Baseline for motor function and sensory. Psychologic: Normal affect. Respiratory: Nonlabored. No use of accessory muscles. No tachypnea or dyspnea. Cardiovascular: No tachycardia Skin: Howard and Dry. No rashes or visible lesions. Extremities: Moving without issues. Right shoulder in sling. No motor deficits on inspection : Bazzi in place draining clear yellow urine Abdomen: Soft Non-distended. No rebound or guarding. Results & Data Vital Signs (Past 12 Hours) Vital Signs Temp Pulse Resp BP Pulse Ox O2 Del Method 07/03/22 08:30 Room Air 07/03/22 07:43 36.7 C 101 H 18 108/75 95 Room Air PG Care Time/CCT Total # of Minutes Spent Total Time Spent with Patient: Total time spent is greater than 50% in coordination of care (as documented) at patient's floor/unit and/or counseling patient: Coding Level of Care Code 59445 INT INP/OBS CARE 3/75MIN Diagnoses Urinary retention R33.9 Right rotator cuff tear arthropathy M75.101; M12.811 Borderline diabetes mellitus R73.03
== END 2022-07-03 15:30 | disposition home health service (06) | DRG 483 ==
LOC: ASU 07:12 → 3E 12:31